=== PATIENT | female | born 2000 | race Caucasian/White ===

== ENCOUNTER 2022-12-02 15:57 | Outpatient (CLI) | payer BC, SELFPAY ==
[2022-12-02 18:57] LABS: Chlamydia DNA Amplified* NOT DETECTED (No Detected); GC DNA Amplified* NOT DETECTED (No Detected)
== END 2022-12-02 15:58 | disposition home or self-care (01) ==
PROVIDERS: PCP Family Medicine; Visit Provider Registered Nurse
DX: Z01.419 Encounter for gynecological examination (general) (routine) without abnormal findings (principal); Z11.3 Encounter for screening for infections with a predominantly sexual mode of transmission
CPT/HCPCS: 87491; 87591

== ENCOUNTER 2023-09-26 10:46 | Emergency (ER) | payer BC, SELFPAY ==
[2023-09-26 10:51] VITALS: BP 115/73; PULSE 126; RESP 18; TEMP 36.6; O2SAT 97; BMI 32.4
--- NOTE | 2023-09-26 11:04 | CT_ITS ---
Patient: ARIANA ZAMAN Facility:?[facility] R[facility] Patient ID:?[id number] Site Patient ID:?[id number]. Site :?[id number] Study:?CT-ST Neck W/ 95CC [id number]/25/2024 12:08:26 PM Ordering Physician:Sari Tong Final Report: Indication: Left peritonsillar abscess Technique: CT soft tissue neck with IV contrast. Multiplanar reformats are included Contrast: 95 mL Isovue [address] note that all CT scans at this facility use dose modulation, iterative reconstruction, and/or weight-based dosing when appropriate to reduce radiation dose to as low as reasonably achievable. Comparison: None Findings: Enlarged palatine tonsils with striated enhancement. No peritonsillar abscess. No retropharyngeal effusion or retropharyngeal abscess. Expected bilateral reactive cervical adenitis. The adenoids and lingual tonsils are normal for age. No airway deviation or mass effect. The epiglottis is normal. Lung apices are normal. Patent major vascular structures in the neck. The parotid, submandibular, and thyroid glands are normal. Small amount of fluid in the left maxillary sinus. The other paranasal sinuses are normal. The mastoids and middle ears are normal. The included intracranial contents as well as the orbits and globes are normal. Impression: Tonsillitis and reactive cervical adenitis. No peritonsillar or retropharyngeal abscess. Please note that all CT scans at this facility use dose modulation, iterative reconstruction, and/or weight-based dosing when appropriate to reduce radiation dose to as low as reasonably achievable. Dictated by Vianey Justice MD @ 09/26/2023 12:29:04 PM Signed by:?Vianey Justice MD @09/26/2023 12:29:04 PM (Electronic Signature)
--- NOTE | 2023-09-26 11:09 | ED.GENADULT ---
HPI - General Adult General Chief complaint: Sore Throat Stated complaint: Tonsil abscess - ref from urgent care Time Seen by Provider: 09/26/23 10:52 History of Present Illness HPI narrative: 22-year-old white female who is largely healthy presents to urgent care with left-sided throat pain worse over the last 24 hours but has been bothered her for few days. She was sent to the ER for further evaluation. She reports difficulty opening her mouth fully due reports difficulty swallowing/on the left side. She had a negative strep test by her report from urgent care. She has had recurrent sore throats and tonsillitis. This is the worse symptoms she has had. No chest pain, shortness of breath, neurologic complaints. Related Data Previous Rx's Medication Instructions Recorded norgestrel 0.3 mg-ethinyl 1 tab PO QDAY #84 tabs 07/28/23 estradiol 30 mcg tablet (Low-Ogestrel (28)) amoxicillin 500 mg-potassium 1 tab PO BID #14 tabs 09/26/23 clavulanate 125 mg tablet (Augmentin) prednisone 20 mg tablet 20 mg PO BID 3 days #6 tabs 09/26/23 Allergies Allergy/AdvReac Type Severity Reaction Status Date / Time No Known Drug Allergies Allergy Verified 09/26/23 09:33 Review of Systems Status of ROS: Reports: 6 or more systems reviewed and unremarkable except as noted in History and below PFSH PFS Medical History Contraception management ?Z30.9 - Encounter for contraceptive management, unspecified (ICD-10) Family History Grandmother Colon cancer FH: mental illness Grandfather Diabetes Abuse, drug or alcohol Sister FH: mental illness Other Thyroid disease Social History Smoking Status: Current every day smoker Little interest or pleasure in doing things: several days Feeling down, depressed, or hopeless: several days Exam Narrative: Exam Narrative: Objective: Patient is afebrile vital signs otherwise within normal limits other than pulse elevated 126 Patient is on control pills Alert orient x3 HEENT shows mild exudate of tonsillitis with significant swelling on the left peritonsillar area. Mild trismus Neck is supple Good peripheral perfusion noted Const: Vital Signs, click to edit/add: Vital Signs - 24 hr 09/26/23 10:51 09/26/23 11:56 Temperature 97.9 F Pulse Rate [Right Pulse Oximeter] 126 H Respiratory Rate 18 Blood Pressure [Ri ght Upper Arm] 115/73 Pulse Oximetry 97 98 Course Vital Signs Vital signs: Initial Vital Signs Temperature 97.9 F 09/26/23 10:51 Temperature Source Temporal Artery Scan 09/26/23 10:51 Pulse Rate 126 H 09/26/23 10:51 Respiratory Rate 18 09/26/23 10:51 Blood Pressure 115/73 09/26/23 10:51 Blood Pressure Mean 87 09/26/23 10:51 Blood Pressure Position Sitting 09/26/23 10:51 Pulse Oximetry 97 09/26/23 10:51 Vital Signs Temperature 97.9 F 09/26/23 10:51 Pulse Rate 126 H 09/26/23 10:51 Respiratory Rate 18 09/26/23 10:51 Blood Pressure 115/73 09/26/23 10:51 Pulse Oximetry 97 09/26/23 10:51 Temperature 97.9 F 09/26/23 10:51 Pulse Rate 126 H 09/26/23 10:51 Respiratory Rate 18 09/26/23 10:51 Blood Pressure 115/73 09/26/23 10:51 Pulse Oximetry 98 09/26/23 11:56 Medications Administered Medications: Discontinued Medications Generic Name Dose Route Start Last Admin Trade Name Freq PRN Reason Stop Dose Admin Sodium Chloride 1,000 mls @ 6,000 mls/hr 09/26/23 11:15 09/26/23 12:09 0.9 % Sodium Chloride 1000 Ml IV 09/26/23 11:24 Infused .Q10M ERICKA Infusion Ampicillin Sodium/Sulbactam 100 mls @ 200 mls/hr 09/26/23 11:04 09/26/23 12:09 Sodium 3 gm/ Sodium Chloride IVPB 09/26/23 11:05 Infused ONCE ONE Infusion Methylprednisolone Sodium Succinate 125 mg 09/26/23 11:04 09/26/23 11:35 Methylprednisolone Sod Succ 62.5 Mg/Ml (125) IVP 09/26/23 11:05 125 mg ONCE ONE Administration Medical Decision Making MDM Narrative Medical decision making narrative: 22-year-old white female with probable peritonsillar abscess. Patient will get IV steroids IV antibiotic, her rapid strep test was negative by her report. Will do a CT scan of her neck soft tissue with IV contrast to exclude abscess, will check a test and labs before. Her last menstrual period was 3 days ago. She is on control pills but will check none the less. Disposition pending CT and lab results. Addendum 12:40 p.m.: Patient feels improved at this point, CT scan of the neck shows tonsillitis with reactive cervical adenitis no peritonsillar retropharyngeal abscess. The patient's CRP is elevated 14.7, [place] [address]. ER profile largely unremarkable, test negative. CT scan with the evidence of tonsillitis. Patient was given IV Unasyn and Solu-Medrol. Will start Augmentin for home 500 b.i.d. x7 days would also use prednisone 20 mg b.i.d. x3 days, may use Advil as well. Follow-up for ENT consultation with Dr. Leon in would be recommended as well to consider tonsillectomy at some point Lab Data Labs: Lab Results 09/26/23 Range/Units 11:10 WBC 15.95 H (4.50-11.00) K/uL RBC 4.76 (4.00-5.20) m/uL Hgb 14.5 (12.0-16.0) gm/dL Hct 42.4 (33.0-51.0) % MCV 89 (80-100) fL MCH 31 (26-34) pg MCHC 34 (32-36) gm/dL RDW Coeff of Erika 11.7 (11.5-15.5) % Plt Count 247 (140-440) K/uL Neut % (Auto) 86.9 H (42.0-72.0) % Lymph % (Auto) 6.0 L (20-44) % [place] % (Auto) 6.1 (0.0-11.0) % Eos % (Auto) 0.0 (0.0-7.0) % Baso % (Auto) 0.1 (0.0-3.0) % Neut # (Auto) 13.90 H (1.7-7.0) K/uL Lymph # (Auto) 1.00 (0.90-2.90) K/uL [place] # (Auto) 1.00 H (0.00-0.90) K/UL Eos # (Auto) 0.00 (0.00-0.50) K/uL Baso # (Auto) 0.00 (0.00-0.30) K/uL Abs Immat Gran (auto) 0.10 (0.00-0.30) K/uL Imm/Tot Granulo (auto) 0.9 % Sodium 138 (135-149) mmol/L Potassium 3.6 (3.6-5.1) mmol/L Chloride 106 (96-114) mmol/L Carbon Dioxide 17 L (20-32) mmol/L Anion Gap 15 (7-15) mEq/L BUN 9 (5-24) mg/dL Creatinine 0.7 (0.5-1.5) mg/dL Estimated Creat Clear 114.40 Estimated GFR 126 ml/min Glucose 102 (60-115) mg/dL Calcium 9.6 (8.4-10.6) mg/dL C-Reactive Protein 14.7 H (0.5-1.0) mg/dL HCG, Qual Negative (Negative) Discharge Plan Discharge Clinical Impression: Acute tonsillitis Patient Disposition: Home w/ Parent or Adult Condition: Stable Additional Instructions: Light activity, antibiotic to start today , few days of steroid medicine as well. Would recommend he recheck with Dr. bella the ENT doctor regarding tonsillectomy at some point Activity Level: Light activity Discharge Diet: Regular Prescriptions: New amoxicillin-pot clavulanate [Augmentin] 500-125 mg tablet 1 tab PO BID Qty: 14 0RF prednisone 20 mg tablet 20 mg PO BID 3 Days Qty: 6 0RF No Action Low-Ogestrel (28) 0.3-30 mg-mcg tablet 1 tab PO QDAY Qty: 84 0RF Follow Up/Referrals: Ozzie Walker MD [Primary Care Provider] - Stand Alone Forms: [employer] Info Instructions
[2023-09-26 11:30] LABS: Basophils Percent Auto 0.1 % (0.0-3.0); Hematocrit 42.4 % (33.0-51.0); Hemoglobin* 14.5 gm/dL (12.0-16.0); Immature Granulocytes Pct Auto 0.9 %; Mean Corpuscular HGB Conc 34 gm/dL (32-36); Mean Corpuscular Hemoglobin 31 pg (26-34); Mean Corpuscular Volume 89 fL (80-100); Monocytes Percent Auto 6.1 % (0.0-11.0); Neutrophils Percent Auto 86.9 % (42.0-72.0); Platelet Count* 247 K/uL (140-440); RDW Coefficient of Variation % 11.7 % (11.5-15.5); Red Blood Count 4.76 m/uL (4.00-5.20); White Blood Count* 15.95 K/uL (4.50-11.00)
[2023-09-26 11:32] LABS: Slide Review Reflex No
[2023-09-26] MEDS: METHYLPREDNISOLONE SOD SUCC 62.5 MG/ML (125) 125 MG IVP (11:35)
[2023-09-26] MEDS: 0.9 % SODIUM CHLORIDE 1000 ml 1,000 ML 6000 ML IV (11:35)
[2023-09-26] MEDS: AMPICILLIN/SULBACTAM 3 GM in 0.9 % SODIUM CHLORIDE Mini-bag 100 ML IVPB (11:35)
[2023-09-26 11:37] LABS: Chloride* 106 mmol/L (96-114); Sodium* 138 mmol/L (135-149)
[2023-09-26 11:38] LABS: Potassium* 3.6 mmol/L (3.6-5.1)
[2023-09-26 11:40] LABS: Anion Gap 15 mEq/L (7-15); Carbon Dioxide* 17 mmol/L (20-32); Creatinine* 0.7 mg/dL (0.5-1.5); Estimated Glomerular Filt Rate 126 ml/min
[2023-09-26 11:41] LABS: Blood Urea Nitrogen* 9 mg/dL (5-24); Calcium* 9.6 mg/dL (8.4-10.6); Glucose* 102 mg/dL (60-115)
[2023-09-26 11:45] LABS: HCG Qualitative Serum* Negative (Negative)
[2023-09-26 11:56] VITALS: O2SAT 98
[2023-09-26 12:00] LABS: C Reactive Protein* 14.7 mg/dL (0.5-1.0)
== END 2023-09-26 12:47 | disposition home or self-care (01) ==
PROVIDERS: Emergency Provider Family Medicine; PCP Family Medicine
DX: J03.90 Acute tonsillitis, unspecified (principal)
CPT/HCPCS: 36415; 70491; 80048; 84703; 85025; 86140; 94761; 96365; 96375; 99284; J0295; J2930; J7030; Q9967

== ENCOUNTER 2023-12-23 17:16 | Outpatient (CLI) | payer BC, SELFPAY ==
[2023-12-23 22:36] LABS: Chlamydia DNA Amplified* NOT DETECTED (No Detected); GC DNA Amplified* NOT DETECTED (No Detected)
== END 2023-12-23 17:17 | disposition home or self-care (01) ==
PROVIDERS: PCP Family Medicine; Visit Provider Nurse Practitioner Family
DX: Z11.3 Encounter for screening for infections with a predominantly sexual mode of transmission (principal)
CPT/HCPCS: 87491; 87591

== ENCOUNTER 2024-05-26 10:09 | Day surgery (SDC) | payer BC, SELFPAY ==
[2024-05-26] VITALS (17 sets, daily range): BP systolic 107–128; BP diastolic 69–97; PULSE 60–90; RESP 16–20; TEMP 36.1–37.2; O2SAT 92–99; BMI 30.9
[2024-05-26 10:24] LABS: Ur HCG Qualitative* Negative (Negative)
[2024-05-26] MEDS: 0.9 % SODIUM CHLORIDE 500 ML 500 ML 35 ML IV (10:41)
[2024-05-26] MEDS: SODIUM CHLORIDE 0.9 % (FLUSH) 10 ML SYRINGE IVF (10:41)
--- NOTE | 2024-05-26 12:44 | W.ANESCHARGE ---
Anesthesia Charges Start Date/Time Anesthesia Start Date: 05/26/24 Anesthesia Start Time: 11:59 Stop Date/Time Anesthesia Stop Date: 05/26/24 Anesthesia Stop Time: 12:45
--- NOTE | 2024-05-26 12:50 | W.ANESCHARGE ---
Anesthesia Charges Start Date/Time Anesthesia Start Date: 05/26/24 Anesthesia Start Time: 11:59 Stop Date/Time Anesthesia Stop Date: 05/26/24 Anesthesia Stop Time: 12:45
[2024-05-26] MEDS: fentaNYL 100 MCG/2 ML inj 50 MCG IVP ×2 (12:53→13:07)
--- NOTE | 2024-05-26 13:03 | W.PM.ENTPROC ---
Procedure Note Date of procedure: 05/26/24 Procedure: Diagnosis chronic and cryptic tonsillitis Postoperative diagnosis same Procedure tonsillectomy Under general trach anesthesia patient was prepped draped usual fashion. The McIvor mouth gag was inserted the tongue retracted forward. The right tonsil was removed with a combination of needlepoint, suction cautery, and bipolar. This was repeated on the left side in identical fashion. The nasopharynx was inspected and there is no significant adenoid tissue. The patient was extubated ox room taken recovery in satisfactory condition. Blood loss was 20 mL. Surgeon: Reyes Brown MD
[2024-05-26] MEDS: ONDANSETRON 2 MG/ML inj 4 MG IVP (13:30)
[2024-05-26] MEDS: IBUPROFEN 100 MG/5 ML SUSP 200 MG PO (13:39)
[2024-05-26] MEDS: ACETAMINOPHEN 160 MG/5 ML CUP 320 MG PO (13:39)
== END 2024-05-26 15:20 | disposition home or self-care (01) ==
LOC: OR 10:11
PROVIDERS: Anesthesiology; PCP Family Medicine; Visit Provider Otolaryngology
PROC: (CPT 42826; principal; 2024-05-26 11:30)
DX: J35.01 Chronic tonsillitis (principal)
CPT/HCPCS: 42826; 00170; 81025; 88304; A9270; J0330; J1100; J2405; J2704; J3010; J3490; J7030